=== PATIENT | female | born 1960 | race Caucasian/White ===

== ENCOUNTER → 2017-01-06 | Outpatient (CLI) | payer OTHER ==
--- NOTE | 2017-01-06 09:34 | CPEKG ---
Heart Rate: 70 RR Interval: 857 P-R Interval: 160 QRSD Interval: 86 QT Interval: 380 QTC Interval: 410 P [place]: 69 QRS [place]: 70 T Wave [place]: -28 EKG Severity - ABNORMAL ECG - EKG Impression: SINUS RHYTHM EKG Impression: ABNRM R PROG, CONSIDER ASMI OR LEAD PLACEMENT EKG Impression: Diffuse ST-T wave abnormalities. Electronically Signed By: Carlos Mullins 06-Jan-2017 11:36:36
== END ==
LOC: FCP 09:14
PROVIDERS: ATTEND Family Medicine
DX: Z01.818 Encounter for other preprocedural examination (principal); R94.31 Abnormal electrocardiogram [ECG] [EKG]

== ENCOUNTER → 2017-01-14 | Outpatient (CLI) | payer OTHER ==
--- NOTE | 2017-01-14 11:24 | CPEKG ---
Heart Rate: 65 RR Interval: 923 P-R Interval: 156 QRSD Interval: 92 QT Interval: 400 QTC Interval: 416 P [place]: 56 QRS [place]: 28 T Wave [place]: 64 EKG Severity - ABNORMAL ECG - EKG Impression: SINUS RHYTHM EKG Impression: CONSIDER ANTEROSEPTAL INFARCT EKG Impression: ST/T WAVE CHANGES NOTED ON PRIOR ECG (06-JAN-17) CONTINUE TO BE NOTED Electronically Signed By: Roberto Caicedo 14-Jan-2017 12:07:00
== END ==
LOC: FCP 10:45
PROVIDERS: ATTEND Family Medicine
DX: Z01.818 Encounter for other preprocedural examination (principal); R94.31 Abnormal electrocardiogram [ECG] [EKG]